=== PATIENT | female | born 1960 | race Caucasian/White ===

== ENCOUNTER → 2016-12-02 | Outpatient (CLI) | payer OTHER ==
[~2016-12-02] MED LIST: CALCIUM1 CAP PO; MULTIVITAMIN; PAXIL20 PO; VITAMIN B12 PO; VITAMIN C PO
== END | disposition home or self-care (01) ==
LOC: MA 10:42
PROC: BH02ZZZ Plain Radiography of Bilateral Breasts (ICD-10-PCS; principal; 2016-12-02)
DX: Z12.31 Encounter for screening mammogram for malignant neoplasm of breast (principal)
CPT/HCPCS: G0202

== ENCOUNTER → 2017-01-21 | Outpatient (CLI) | payer OTHER ==
[2017-01-21 09:06] LABS: BASOPHIL % 0.3 % (0-2); PLATELET COUNT 252 x10^3mcL (130-400); RED CELL DISTRIBUTION WIDTH 13.1 % (11.5-14.5)
[2017-01-21 09:36] LABS: ALKALINE PHOSPHATASE 77 U/L (46-116); ALT/SGPT 31 U/L (14-59); AST/SGOT 18 U/L (15-37); BILIRUBIN TOTAL 0.2 mg/dL (0.20-1.00); CALCIUM 9.2 mg/dL (8.5-10.1); CARBON DIOXIDE 31.8 mmol/L (21-32); CHLORIDE SERUM 104 mmol/L (98-107); CHOLESTEROL 241 mg/dL (<200); CREATININE SERUM 0.8 mg/dL (0.6-1.0); GFR1 > 60 mL/min; GLUCOSE SERUM 94 mg/dL (74-106); HDL CHOLESTEROL 60 mg/dL (40-60); POTASSIUM SERUM 4.6 mmol/L (3.5-5.1); SODIUM SERUM 139 mmol/L (136-145); TOTAL PROTEIN, SERUM 7.7 g/dL (6.4-8.2); TRIGLYCERIDES 124 mg/dL (<150)
== END | disposition home or self-care (01) ==
LOC: LB 07:20
DX: Z01.419 Encounter for gynecological examination (general) (routine) without abnormal findings (principal)

== ENCOUNTER → 2017-07-13 | Outpatient (CLI) | payer OTHER ==
[2017-07-13 07:45] LABS: BASOPHIL % 0.5 % (0-2); PLATELET COUNT 256 x10^3mcL (130-400); RED CELL DISTRIBUTION WIDTH 13.1 % (11.5-14.5)
[2017-07-13 08:47] LABS: ALKALINE PHOSPHATASE 65 U/L (46-116); ALT/SGPT 38 U/L (14-59); AST/SGOT 30 U/L (15-37); BILIRUBIN TOTAL 0.32 mg/dL (0.20-1.00); CALCIUM 9.2 mg/dL (8.5-10.1); CARBON DIOXIDE 28.8 mmol/L (21-32); CHLORIDE SERUM 103 mmol/L (98-107); CREATININE SERUM 0.9 mg/dL (0.6-1.0); GFR1 > 60 mL/min; GLUCOSE SERUM 112 mg/dL (74-106); POTASSIUM SERUM 4.5 mmol/L (3.5-5.1); SODIUM SERUM 143 mmol/L (136-145); TOTAL PROTEIN, SERUM 7.7 g/dL (6.4-8.2); TRIGLYCERIDES 118 mg/dL (<150); URIC ACID 6.7 mg/dL (2.6-6.0)
[2017-07-13 08:50] LABS: CHOLESTEROL 221 mg/dL (<200); CHOLESTEROL/HDL RATIO 3.3; HDL CHOLESTEROL 67 mg/dL (40-60)
[2017-07-13 08:58] LABS: FREE T4 0.79 ng/dL (0.76-1.46); FREE THYROXINE INDEX 1.9 ug/dL (1.4-4.5); T4(THYROXINE) 5.7 ug/dL (4.7-13.3)
[2017-07-13 09:42] LABS: T3 TOTAL 0.88 ng/mL
== END | disposition home or self-care (01) ==
LOC: LB 07:10
PROVIDERS: Internal Medicine
DX: E78.4 Other hyperlipidemia (principal)
CPT/HCPCS: 84439

== ENCOUNTER → 2017-12-09 | Outpatient (CLI) | payer OTHER | END | disposition home or self-care (01) | LOC: MA 14:19 | PROC: BH02ZZZ Plain Radiography of Bilateral Breasts (ICD-10-PCS; principal; 2017-12-09) | DX: Z12.31 Encounter for screening mammogram for malignant neoplasm of breast (principal) | CPT/HCPCS: 77067 ==

== ENCOUNTER → 2018-06-16 | Outpatient (CLI) | payer OTHER ==
[2018-06-16 08:13] LABS: BASOPHIL % 0.6 % (0-2); PLATELET COUNT 226 x10^3mcL (130-400)
[2018-06-16 08:17] LABS: ALKALINE PHOSPHATASE 69 U/L (46-116); ALT/SGPT 31 U/L (14-59); AST/SGOT 15 U/L (15-37); BILIRUBIN TOTAL 0.1 mg/dL (0.20-1.00); CALCIUM 9.2 mg/dL (8.5-10.1); CARBON DIOXIDE 29.4 mmol/L (21-32); CHLORIDE SERUM 103 mmol/L (98-107); CHOLESTEROL 230 mg/dL (<200); CHOLESTEROL/HDL RATIO 3.5; CREATININE SERUM 0.9 mg/dL (0.6-1.0); GFR1 > 60 mL/min; GLUCOSE SERUM 104 mg/dL (74-106); HDL CHOLESTEROL 65 mg/dL (40-60); POTASSIUM SERUM 4.3 mmol/L (3.5-5.1); SODIUM SERUM 141 mmol/L (136-145); TOTAL PROTEIN, SERUM 7.6 g/dL (6.4-8.2); TRIGLYCERIDES 107 mg/dL (<150)
== END | disposition home or self-care (01) ==
LOC: LB 07:23
DX: I10 Essential (primary) hypertension (principal); D64.9 Anemia, unspecified; E03.9 Hypothyroidism, unspecified; E55.9 Vitamin D deficiency, unspecified; E11.9 Type 2 diabetes mellitus without complications; E78.5 Hyperlipidemia, unspecified

== ENCOUNTER 2018-09-18 10:23 | Inpatient (IN) | payer OTHER ==
[~2018-09-18] VITALS: Ht 170.2 cm; Wt 81.6 kg
[~2018-09-18 10:23] MED LIST changes: +CALCIUM 600+D1 EAC1; -CALCIUM1 CAP PO; -PAXIL20 PO; +PAXIL40 M1 PO
--- NOTE | 2018-09-18 10:35 | NUR ---
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 PT CLAIMS SHE SUDDENLY FELT WEAK AND DIZZY AND IF HER "LEGS FELT LIKE THE WERE HEAVY AND NOT WORKING." PT DID NOT FALL BUT SAT DOWN ON A CHAIR. UPON ARRIVAL TO ED PT APPEARS PALE AND SLIGHTLY CONFUSED TO HOW SHE FEELS. CLAIMS SHE IS STILL DIZZY. DENIES ANY PAIN INCLUDING CHEST PAIN. CLAIMS SHE HAS SUDDEN FATIGUE AND GEN WEAK. DR TAYLOR AT BEDSIDE FOR EVAL AND EKG PERFORMED. PT CLAIMS SHE HAD ADEQUATE FOOD AND FLUID INTAKE THIS AM. BS 94. VSS UPON ARRIVAL AND IV INITIATED.
--- NOTE | 2018-09-18 11:01 | NUR ---
PER DR MACKEY HOLD FLUIDS UNTIL ORTHO'S COMPLETE. KASSANDRA AT BEDSIDE FOR ORTHOS
[2018-09-18 11:09] LABS: BASOPHIL % 0.4 % (0-2); PLATELET COUNT 245 x10^3mcL (130-400); RED CELL DISTRIBUTION WIDTH 13.1 % (11.5-14.5)
--- NOTE | 2018-09-18 11:12 | NUR ---
PT LEFT FOR CT HEAD VIA [facility]
[2018-09-18 11:22] LABS: CALCIUM 9.7 mg/dL (8.5-10.1); CARBON DIOXIDE 29.4 mmol/L (21-32); CHLORIDE SERUM 100 mmol/L (98-107); CREATININE SERUM 0.9 mg/dL (0.6-1.0); GFR1 > 60 mL/min; GLUCOSE SERUM 113 mg/dL (74-106); POTASSIUM SERUM 4.4 mmol/L (3.5-5.1); SODIUM SERUM 139 mmol/L (136-145)
--- NOTE | 2018-09-18 11:29 | NUR ---
PT RETURNED FROM CT HEAD AND ORTHOSTATICS COMPLETE. FLUID INITIATED
[2018-09-18 11:33] LABS: ALBUMIN 4.2 g/dL (3.4-5.0); ALKALINE PHOSPHATASE 74 U/L (46-116); ALT/SGPT 34 U/L (14-59); AMYLASE 87 U/L (25-115); AST/SGOT 20 U/L (15-37); BILIRUBIN TOTAL 0.3 mg/dL (0.20-1.00); LIPASE 573 IU/L (73-393); MAGNESIUM 1.9 mg/dL (1.8-2.4); T4(THYROXINE) 5.2 ug/dL (4.7-13.3)
[2018-09-18 11:36] LABS: CHOLESTEROL 260 mg/dL (<200); HDL CHOLESTEROL 65 mg/dL (40-60)
--- NOTE | 2018-09-18 12:08 | NUR ---
PT WHEELED TO RESTROOM AND BACK. TOLERATED WELL
[2018-09-18 12:18] LABS: microscopic required? NO
[2018-09-18 12:23] LABS: UA SPECIFIC GRAVITY <=1.005 (1.005-1.035); urine erythrocyte NEGATIVE (NEGATIVE)
[2018-09-18 12:31] LABS: AMPHETAMINE QUAL UR NONE DETECTED (See below)
--- NOTE | 2018-09-18 14:47 | NUR ---
REPORT GIVEN TO DENIS AVILA TO ASSUME CARE OF THE PT.
--- NOTE | 2018-09-18 14:59 | NUR ---
RECEIVED PT VIA [facility] FROM E/D, ACCOMPANIED BY TRANSPORTER. PT A/A/O X 4, CALM, COOPERATIVE AT THIS TIME, DENIES H/A, DIZZINESS, OR NAUSEA. PT W/ GENERALIZED WEAKNESS BUT ABLE TO AMBULATE W/ SLOW, STEADY GAIT FROM GUERNEY TO BED. ON TELE # 2, NSR, HR 74, DENIES CHEST PAIN OR DISCOMFORT AT THIS TIME. NO ACUTE RESPIRATORY DISTRESS NOTED. ABD SOFT, ROUND, NON-TENDER, NORMOACTIVE BOWEL SOUNDS AND TYMPANY UPON PERCUSSION X 4 QUADS, LAST BM 09/18/18, FORMED. IV SITE LAC 20G, CDI. ORIENTED PT TO ROOM, BED CONTROLS, CALL LIGHT SYSTEM. SIDE RAILS UP X 2, BED IN LOW POSITION. WILL ENDORSE TO DENIS AVILA.
[2018-09-18 15:19] VITALS: BP 131/67
--- NOTE | 2018-09-18 15:27 | NUR ---
PATIENT RECEIVED FROM ER AND ALERT AND ORIENTED TIMES FOUR. 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 THERE WERE TEST ON THE HEAD AND LABS DRAWN. VALERIO THAJaci AN ELVATED LIPASE, AIC OF 6.1, AND ELEVATED CHOLESTEROL. PATEINT RAJWINDERS BEEN WITH CLEAR BREATH SOUNDS AND STATES SHE SLEEPS WITH A C PAP AT NIGHT. 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 AT THIS TIME SHE IS HUNGERY AND SHE IS EATTING A SANDWICH GIVEN TO HER IN ER. SHE HAS REQUESTED SOMETHING TO DRINK WELL. SHE HAS THE MRSA DOEN AND HAS RECIEVED 2 LITER BOLUS IN THE ER AND AT THIS TIME SHE MACHADO SNOT APPEAR DIZZY. WILL GO OVER THE ORDERS AND DISCUSS PLAN OF CARE. SHE IS COMFORTABLE AND STABLE AT THIS TIME. SHE HAS BEEN ADVISED TO CALL IF SHE NEED TO USE THE RESTROOM OR ECT FOR SAFETY. WILL CONTINUE TO MONITOR.
--- NOTE | 2018-09-18 18:32 | NUR ---
TOLEATED DIET AND FLUIDS AND NO NAUSEA NOTED. PATIENT HAS NO COMPLAINTS OF DIZZINESS OR SYNCOPE AT THIS TIME WILL ENDORSE TO THE NEXT SHIFT INDICATED.
--- NOTE | 2018-09-18 19:10 | NUR ---
RECEIVED PT IN BED COMFORTABLY RESYING. LUNG SOUND CTA. BREATHING EVEN AND UNLABORED.DEBNIES ANY PAIN AT THIS TIME. IV SITE PATENT AND INTACT. BED IN LOWEST POSITION,CALL LIGHT WITHIN REACH. WILL CONTINUE TO MONITOR.
[2018-09-18 22:04] VITALS: BP 92/51
[2018-09-19 00:20] VITALS: BP 92/51
--- NOTE | 2018-09-19 04:59 | NUR ---
PT APPEARS TO BE SLEEPING.NO SOB NOTED.NO C/O PAIN.CPAP MACHINE AT BEDSIDE FOR BEDTIME USED.BUT PT REFUSED TO USED IT.REQUESTED FOR OXYGEN IN 2L/NC INSTEAD.BED IN LOWEST POSITION,CALL LIGHT WITHIN REACH. WILL CONTINUE TO MONITOR.
[2018-09-19 06:31] VITALS: BP 105/61
--- NOTE | 2018-09-19 07:25 | NUR ---
RECIEVED PT RESTING COMFORTABLY IN BED. PT DENIES ANY CHEST PAIN OR DISTRESS AT THIS TIME. TELE #2 CONNECTED TO PT. A/O X4. LAC IV INTACT AND PATENT. RUNNING NS AT 100ML/HR. SAFETY PRECAUTIONS IN PLACE. CALL LIGHT WITHIN REACH. WILL MONITOR
--- NOTE | 2018-09-19 07:28 | NUR ---
ECHOCARDIOGRAM PENDING-HAVING BREAKFAST
[2018-09-19 07:29] LABS: BASOPHIL % 0.5 % (0-2); PLATELET COUNT 207 x10^3mcL (130-400); RED CELL DISTRIBUTION WIDTH 13.3 % (11.5-14.5)
--- NOTE | 2018-09-19 07:29 | NUR ---
CARE ENDORSED TO DAY NURSE PASTOR.
[2018-09-19 07:44] LABS: CALCIUM 8.1 mg/dL (8.5-10.1); CARBON DIOXIDE 29.4 mmol/L (21-32); CHLORIDE SERUM 104 mmol/L (98-107); CREATININE SERUM 0.9 mg/dL (0.6-1.0); GFR1 > 60 mL/min; GLUCOSE SERUM 130 mg/dL (74-106); MAGNESIUM 1.8 mg/dL (1.8-2.4); PHOSPHOROUS 3.3 mg/dL (2.5-4.9); POTASSIUM SERUM 4.4 mmol/L (3.5-5.1); SODIUM SERUM 141 mmol/L (136-145)
--- NOTE | 2018-09-19 09:30 | NUR ---
PT RESTING COMFORTABLY IN BED. DENIES ANY PAIN OR DISTRESS AT THIS TIME. SAFETY PRECAUTIONS IN PLACE. CALL LIGHT WITHIN REACH. WILL MONITOR
[2018-09-19 09:40] VITALS: BP 123/57
--- NOTE | 2018-09-19 13:15 | NUR ---
PATIENT SITTING UP IN BED RESTING COMFORTABLY NO DISTRESS NOTED. PATIENT STABLE FOR DISCHARGE HOME TODAY, PER PATIENT HER WILL BE IN AROUND [phone] TO PICK HER UP. ALL QUESTIONS AND CONCERNS ADDRESSED. SAFETY PRECAUTIONS IN PLACE.
[2018-09-19 13:20] VITALS: BP 131/78
--- NOTE | 2018-09-19 15:57 | NUR ---
PATIENT STABLE FOR DISCHARGE HOME. DISCHARGE INSTRUCTIONS, BELONGINGS LIST, EDUCATION AND WORK NOTE GIVEN TO PATIENT. VERBALIZED UNDERSTANDING TO FOLLOW UP WITH PCP ON 10/03/18, ALL QUESTIONS AND CONCERNS ADDRESSED. AT BEDSIDE. IV TO LAC REMOVED, CATH INTACT, ID BANDS REMOVED, TELE MONITOR REMOVED. PATIENT ASSISTED DOWN TO LOBBY VIA WHEELCHAIR ACCOMPANIED BY STAFF AND . ALL PERSONAL BELONINGS SENT HOME WITH PATIENT.
== END 2018-09-19 15:57 | disposition home or self-care (01) | DRG 74 ==
LOC: ED 10:23 → DU 14:06
PROVIDERS: Emergency Medicine; ADMIT Internal Medicine
DX: G90.8 Other disorders of autonomic nervous system (principal); F41.8 Other specified anxiety disorders; G47.30 Sleep apnea, unspecified; M47.896 Other spondylosis, lumbar region; E78.5 Hyperlipidemia, unspecified; Z88.6 Allergy status to analgesic agent; E78.00 Pure hypercholesterolemia, unspecified; F32.9 Major depressive disorder, single episode, unspecified; F41.1 Generalized anxiety disorder; Z80.3 Family history of malignant neoplasm of breast; Z83.2 Family history of diseases of the blood and blood-forming organs and certain disorders involving the immune mechanism; F41.0 Panic disorder [episodic paroxysmal anxiety]; E86.0 Dehydration
CPT/HCPCS: 82962; 83880; 85378; 87804; G0480; J7030; Q0092

== ENCOUNTER 2018-11-27 09:13 | Emergency (ER) | payer OTHER ==
[~2018-11-27] VITALS: Ht 162.6 cm; Wt 81.6 kg
[2018-11-27 09:14] VITALS: Ht 162.6 cm; Wt 81.6 kg
[2018-11-27 09:40] LABS: BASOPHIL % 0.5 % (0-2); PLATELET COUNT 232 x10^3mcL (130-400); RED CELL DISTRIBUTION WIDTH 13.5 % (11.5-14.5)
[2018-11-27 09:59] LABS: CALCIUM 9.9 mg/dL (8.5-10.1); CARBON DIOXIDE 30.3 mmol/L (21-32); CHLORIDE SERUM 102 mmol/L (98-107); CREATININE SERUM 0.9 mg/dL (0.6-1.0); GFR1 > 60 mL/min; GLUCOSE SERUM 105 mg/dL (74-106); POTASSIUM SERUM 4.7 mmol/L (3.5-5.1); SODIUM SERUM 139 mmol/L (136-145)
[2018-11-27 10:04] LABS: ALBUMIN 4.1 g/dL (3.4-5.0); ALKALINE PHOSPHATASE 72 U/L (46-116); ALT/SGPT 36 U/L (14-59); AST/SGOT 15 U/L (15-37); BILIRUBIN TOTAL 0.26 mg/dL (0.20-1.00); TOTAL PROTEIN, SERUM 7.5 g/dL (6.4-8.2)
[2018-11-27 10:50] LABS: microscopic required? NO
[2018-11-27 10:55] LABS: urine erythrocyte NEGATIVE (NEGATIVE)
[2018-11-27 11:26] LABS: MAGNESIUM 2.1 mg/dL (1.8-2.4)
[2018-11-27 11:32] LABS: T4(THYROXINE) 4.2 ug/dL (4.7-13.3)
[2018-11-27 11:56] VITALS: BP 113/41
== END 2018-11-27 11:56 | disposition home or self-care (01) ==
LOC: ED 09:13
PROVIDERS: Emergency Medicine
DX: R53.1 Weakness (principal); R42 Dizziness and giddiness; G47.33 Obstructive sleep apnea (adult) (pediatric); E78.00 Pure hypercholesterolemia, unspecified; F32.9 Major depressive disorder, single episode, unspecified; Z98.890 Other specified postprocedural states; Z88.5 Allergy status to narcotic agent
CPT/HCPCS: 36600; J7030

== ENCOUNTER → 2019-02-16 | Outpatient (CLI) | payer OTHER | END | disposition home or self-care (01) | LOC: MA 13:42 | PROC: BH02ZZZ Plain Radiography of Bilateral Breasts (ICD-10-PCS; principal; 2019-02-16) | DX: Z01.419 Encounter for gynecological examination (general) (routine) without abnormal findings (principal); Z12.31 Encounter for screening mammogram for malignant neoplasm of breast | CPT/HCPCS: 77067 ==

== ENCOUNTER → 2019-06-23 | Outpatient (CLI) | payer OTHER ==
[2019-06-23 10:53] LABS: BASOPHIL % 0.3 % (0-2); PLATELET COUNT 242 x10^3mcL (130-400); RED CELL DISTRIBUTION WIDTH 12.9 % (11.5-14.5)
[2019-06-23 11:06] LABS: ALKALINE PHOSPHATASE 70 U/L (46-116); ALT/SGPT 41 U/L (14-59); AST/SGOT 30 U/L (15-37); BILIRUBIN TOTAL 0.3 mg/dL (0.20-1.00); CALCIUM 8.8 mg/dL (8.5-10.1); CARBON DIOXIDE 29.7 mmol/L (21-32); CHLORIDE SERUM 103 mmol/L (98-107); CHOLESTEROL 184 mg/dL (<200); CREATININE SERUM 0.7 mg/dL (0.6-1.0); GFR1 > 60 mL/min; GLUCOSE SERUM 103 mg/dL (74-106); POTASSIUM SERUM 4.4 mmol/L (3.5-5.1); SODIUM SERUM 141 mmol/L (136-145); TOTAL PROTEIN, SERUM 7.6 g/dL (6.4-8.2); TRIGLYCERIDES 99 mg/dL (<150)
[2019-06-23 11:25] LABS: CHOLESTEROL/HDL RATIO 2.7; HDL CHOLESTEROL 67 mg/dL (40-60)
== END | disposition home or self-care (01) ==
LOC: LB 10:21
DX: Z00.00 Encounter for general adult medical examination without abnormal findings (principal); E11.9 Type 2 diabetes mellitus without complications

== ENCOUNTER → 2019-10-27 | Outpatient (CLI) | payer OTHER ==
[2019-10-27 09:43] LABS: ALKALINE PHOSPHATASE 69 U/L (46-116); ALT/SGPT 29 U/L (14-59); AST/SGOT 17 U/L (15-37); BILIRUBIN TOTAL 0.2 mg/dL (0.20-1.00); CALCIUM 8.7 mg/dL (8.5-10.1); CARBON DIOXIDE 28.2 mmol/L (21-32); CHLORIDE SERUM 102 mmol/L (98-107); CHOLESTEROL 201 mg/dL (<200); CREATININE SERUM 0.8 mg/dL (0.6-1.0); GFR1 > 60 mL/min; GLUCOSE SERUM 102 mg/dL (74-106); HDL CHOLESTEROL 66 mg/dL (40-60); POTASSIUM SERUM 4.7 mmol/L (3.5-5.1); SODIUM SERUM 139 mmol/L (136-145); TOTAL PROTEIN, SERUM 7.5 g/dL (6.4-8.2); TRIGLYCERIDES 123 mg/dL (<150)
== END | disposition home or self-care (01) ==
LOC: LB 08:31
DX: E11.9 Type 2 diabetes mellitus without complications (principal); E78.5 Hyperlipidemia, unspecified

== ENCOUNTER → 2020-02-06 | Outpatient (CLI) | payer OTHER ==
[2020-02-06 09:19] LABS: ALKALINE PHOSPHATASE 68 U/L (46-116); ALT/SGPT 31 U/L (14-59); AST/SGOT 17 U/L (15-37); BILIRUBIN TOTAL 0.3 mg/dL (0.20-1.00); CALCIUM 9.2 mg/dL (8.5-10.1); CARBON DIOXIDE 27.9 mmol/L (21-32); CHLORIDE SERUM 102 mmol/L (98-107); CREATININE SERUM 0.9 mg/dL (0.6-1.0); GFR1 > 60 mL/min; GLUCOSE SERUM 106 mg/dL (74-106); POTASSIUM SERUM 4.4 mmol/L (3.5-5.1); SODIUM SERUM 139 mmol/L (136-145); TOTAL PROTEIN, SERUM 7.6 g/dL (6.4-8.2); TRIGLYCERIDES 145 mg/dL (<150)
[2020-02-06 09:28] LABS: CHOLESTEROL 260 mg/dL (<200); CHOLESTEROL/HDL RATIO 4.1; HDL CHOLESTEROL 64 mg/dL (40-60)
[2020-02-07 08:06] LABS: microalbumin:creatinine ratio 7 (0-29)
== END | disposition home or self-care (01) ==
LOC: LB 08:06
DX: E11.9 Type 2 diabetes mellitus without complications (principal); E78.5 Hyperlipidemia, unspecified; R80.9 Proteinuria, unspecified

== ENCOUNTER → 2020-02-28 | Outpatient (CLI) | payer OTHER | END | disposition home or self-care (01) | LOC: MA 07:20 | PROC: BH02ZZZ Plain Radiography of Bilateral Breasts (ICD-10-PCS; principal; 2020-02-28) | DX: Z12.31 Encounter for screening mammogram for malignant neoplasm of breast (principal) | CPT/HCPCS: 77067 ==

== ENCOUNTER → 2020-03-03 | Outpatient (CLI) | payer OTHER | END | disposition home or self-care (01) | LOC: LB 07:25 | DX: Z01.84 Encounter for antibody response examination (principal) | CPT/HCPCS: U0003-CS ==

== ENCOUNTER → 2020-07-22 | Outpatient (CLI) | payer OTHER ==
[2020-07-22 07:46] LABS: BASOPHIL % 0.3 % (0.2-1.3); PLATELET COUNT 258 x10^3mcL (179-408)
[2020-07-22 09:13] LABS: ALBUMIN 4.1 g/dL (3.4-5.0); ALKALINE PHOSPHATASE 78 U/L (46-116); ALT/SGPT 34 U/L (14-59); AST/SGOT 19 U/L (15-37); BILIRUBIN TOTAL 0.3 mg/dL (0.20-1.00); CALCIUM 9.4 mg/dL (8.5-10.1); CHLORIDE SERUM 105 mmol/L (98-107); CHOLESTEROL 154 mg/dL (<200); CREATININE SERUM 0.9 mg/dL (0.6-1.0); GFR1 > 60 mL/min; GLUCOSE SERUM 111 mg/dL (74-106); HDL CHOLESTEROL 76 mg/dL (40-60); POTASSIUM SERUM 4.7 mmol/L (3.5-5.1); SODIUM SERUM 146 mmol/L (136-145); TOTAL PROTEIN, SERUM 7.7 g/dL (6.4-8.2); TRIGLYCERIDES 89 mg/dL (<150)
== END | disposition home or self-care (01) ==
LOC: LB 07:21
DX: E78.5 Hyperlipidemia, unspecified (principal); E11.9 Type 2 diabetes mellitus without complications